=== PATIENT | male | born 1940 | race Caucasian/White ===

== ENCOUNTER → 2022-11-01 11:46 | Outpatient (CLI) | payer MEDICARE, OTHER, SELFPAY ==
--- NOTE | 2022-11-01 11:48 | CA_ITS ---
APPROVED REPORT EXAM: Comprehensive 2D, Doppler, and color-flow Echocardiogram Supervisor Loading: ROYCE Brown, RVS Ht: 6 ft 1 in Wt: 172lbs BSA: 2.02 BP: 166/101 mmHg Rhythm: Irregular Indications: Abn EKG, HTN, HLD, Renal artery stenosis post stent Echo Enhancing Agent Comments: Extremely low and limited acoustic windows with lung impedence. 2D Dimensions LVDd 5.10 cm M: 4.2 - 5.9 LVEF (Visual) 50.40 % LVDs 43.87 cm M: 2.5 - 4.0 LA Volume 51.70 mL Aortic Root 3.18 cm M: 3.1 - 3.7 LA Volume Index 25.59 mL/m2 (M/F) 16-34 Left Atrium 3.43 cm M: 3.0 - 4.0 LVOT 1.99 cm (M/F) 1.5-2.5 M-Mode Dimensions RVDd 2.89 cm (0.9-2.6) LVDd 5.30 cm (3.5-5.7) LVDs 3.73 cm (3.5-5.7) IVSd 1.13 cm (0.6-1.1) PWd 0.93 cm (0.6-1.1) EF (Teich) 56.20% EPSs 1.04 cm FS 29.60% EDV (Teich) 135.30 mL TAPSE 2.31 (<1.7) ESV (Teich) 59.30 mL LV Diastology E Decel Time 325.00 (160-240 msec) E/A Ratio 0.66 MED E' 7.10 (< 7 cm/sec) MED A' 9.40 cm/s E'/MED E' Ratio 5.59 (>14) LAT E' 9.80 (<10 cm/sec) LAT A' 9.60 cm/s E/LAT E' Ratio 4.05 (>14) Aortic Valve LVOT Max 70.00 (70-110 cm/s) LVOT VTI 16.45 cm AoV Peak Maximo. 120.00 (50-130 cm/s) AI PHT 687.00 ms AO Peak GR. 5.70 mmHg AO Mean GR. 2.90 (<5 mmHg) AO VTI 27.48 (18-25 cm) MALACHI (VTI) 1.86 (2.5-4.5 cm2) Mitral Valve MV A Velocity 60.00 (40-130 cm/s) E/A Ratio 0.66 MV Decel. Time 325.00 (160-240 ms) MV PHT 80.00 ms Pulmonary Valve PV Peak Velocity 72.00 (50-150 cm/s) Tricuspid Valve TR P. Velocity 297.00 cm/s Left Ventricle Technically difficult study because of the patient factors and poor acoustic windows. Left atrium is mildly enlarged, left ventricle is normal size, mild concentric left ventricular hypertrophy, estimated ejection fraction is 50% with no obvious regional wall motion abnormality, grade 1 diastolic dysfunction seen without tissue Doppler evidence of raise left atrial pressure. Right Ventricle Right atrium and right ventricle are mildly enlarged with normal contractility. Aortic Valve Aortic valve is minimally thickened and calcified without aortic stenosis, there is mild aortic insufficiency. Mitral Valve Mitral valve leaflets are minimally thickened, there is mild mitral regurgitation. Tricuspid Valve Tricuspid valve is grossly normal, there is mild tricuspid regurgitation, tricuspid regurgitation jet velocity is inadequate for calculation of the right ventricular systolic pressure. Pulmonic Valve Pulmonic valve is poorly visualized. Great Vessels Aortic root is normal size. Inferior vena cava is poorly visualized. Pericardium No significant pericardial effusion noted. Conclusion 1. Mild biatrial enlargement, normal left ventricular size, mild concentric left ventricular hypertrophy, estimated ejection fraction 50% with no regional wall motion abnormality, grade 1 diastolic dysfunction seen without tissue Doppler evidence of restricted atrial pressure. 2. Mild aortic, mitral and tricuspid regurgitation. 3. No significant pericardial effusion noted. 4. Inferior vena cava is poorly visualized. Electronically signed by : Ismael Veronica MD 11/02/2022 06:16:41
== END ==
PROVIDERS: PCP Family Medicine; Visit Provider Nurse Practitioner Family
DX: I15.0 Renovascular hypertension (principal); I70.1 Atherosclerosis of renal artery; R94.31 Abnormal electrocardiogram [ECG] [EKG]
CPT/HCPCS: 93306

== ENCOUNTER → 2022-11-15 06:31 | Outpatient (CLI) | payer MEDICARE, SELFPAY ==
--- NOTE | 2022-11-15 06:32 | US_ITS ---
FINAL REPORT TECHNIQUE: Ultrasound images of the kidneys were obtained. CLINICAL HISTORY: R94.31 - Abnormal electrocardiogram ECG EKG FINDINGS: US RETROPERITONEAL The right kidney measures 10.2 cm in length. There is a small exophytic cortical cyst measuring 1.3 cm. There is no hydronephrosis. The left kidney measures 11.4 cm in length. There are several small cyst in the left kidney. There is mild left hydronephrosis. IMPRESSION: Bilateral renal cysts. Mild left hydronephrosis.. Reviewed, Interpreted and Dictated by Janet Wang MD Transcribed by Aretha Diaz Authenticated and [facility]
--- NOTE | 2022-11-15 06:32 | CA_ITS ---
APPROVED REPORT Exam: Pharmacologic Technologist: Prudence Negro Ht: 6 ft 1 in Wt: 172 lbs BSA: 2.02 m2 HR: 54 bpm BP: 150/73 mmHg Indications: Abnormal ekg, Hypertension, AAA Medical History Medications: Omeprazole,,,,, Levothyroxine,,,,, Hydralazine,,,,, Metoprolol,,,,, Vitamin B12,,,,, Allopurinol,,,,, FOLIC ACID,,,,, CloPIdogrel,,,,, Stress Test Details Test: LEXISCAN HR Resting HR: 64 bpm Max Heart Rate (APMHR): 138.038152 bpm Max HR Achieved: 69 bpm Target HR (85% APMHR): 117.093928 bpm % of APMHR: 50.00 Recovery HR: 61 bpm BP Resting BP: 150.0/73.0 mmHg Max BP: 150.0/73.0 mmHg Recovery BP: 131.0/67.0 mmHg ECG Resting ECG: Sinus rhythm Clinical Exercise duration: 04:00 min Highest Stage Achieved: Exercise capacity: 1.0 METs Stress ECG Conclusion Symptoms: No chest pain. No shortness of breath Arrhythmias/Ectopy: PACs noted. PVC noted. ST-T Changes: < 1.[address] segment depression. Test Summary REST . . . . . . . Resting REST 17:22 . . 64 . 150/ 73 . . Stage 1 . . . . . . . Myoview Injected Stage 1 01:00 . . 65 . . . . Stage 2 01:00 . . 68 . 140/ 69 . . Stage 3 01:00 . . 68 . 136/ 71 . . Stage 4 01:00 . . 66 . 138/ 74 . Stop exercise at 04:00 RECOVERY 01:00 . . 64 . 131/ 71 . . RECOVERY 02:00 . . 60 . 131/ 71 . . RECOVERY 02:19 . . 63 . 131/ 71 . . Electronically signed by : Ismael Veronica MD 11/15/2022 12:31:16
--- NOTE | 2022-11-15 06:32 | US_ITS ---
FINAL REPORT CLINICAL HISTORY: aaa FINDINGS: Limited sonographic images were obtained of the abdomen to evaluate the abdominal aorta and iliac arteries. The abdominal aorta measures up to 4.7 cm in maximum diameter. There is mild atherosclerotic plaque throughout the aorta. The iliac arteries are within normal limits. IMPRESSION: Abdominal aortic aneurysm with a maximum diameter 4.7 cm. Reviewed, Interpreted and Dictated by Janet Wang MD Transcribed by Aretha Diaz Authenticated and [facility]
--- NOTE | 2022-11-15 06:32 | CA_ITS ---
FINAL REPORT TECHNIQUE: Grayscale, color Doppler and duplex Doppler ultrasound of the kidneys, aorta and renal arteries was performed. Multiple velocities were measured. CLINICAL HISTORY: htn, Known AAA, Hx- Left renal artery stent 4 years ago. COMPARISON: none FINDINGS: Aorta velocity: 72 cm/sec. Note is made of abdominal aortic aneurysm measuring 4.5 cm. Right kidney: 10.1 cm. No evidence of hydronephrosis. Cortical cyst is noted. Right intrarenal RI: 0.5-0.65 Right renal artery velocity: 176 cm/sec. Right RAR (Renal artery-Aortic Ratio): 2.44 Left Kidney: 11.6 cm. No evidence of hydronephrosis. There is a small left renal cysts seen. Left intrarenal RI: 0.63-0.73 Left renal artery velocity: 205 cm/sec. Left RAR (Renal Artery-Aortic Ratio): 2.8 IMPRESSION: Less than 60% stenosis on the right. Greater than 60% stenosis on the left based on peak systolic velocity. RAR however is normal. CT angiogram or postcontrast MR angiogram would be more sensitive for evaluation of possible renal artery stenosis. Reviewed, Interpreted and Dictated by Janet Wang MD Transcribed by Janie Poole Authenticated and . [facility]
--- NOTE | 2022-11-15 06:32 | NM_ITS ---
APPROVED REPORT Exam: Nuclear Stress Test Indication: Abnormal EKG, HTN Patient Location: Outpatient Stress Tech: Prudence Negro MS Tech:Kendal Gonzales, ARRT, RT (R)(N) Ht: 6 ft 0 in Wt: 175 lbs HR: 64 bpm BP: 150/73 mmHg BSA: 2.01 m2 TID: 1.27 History: Abnormal EKG, HTN Procedure: Patient received 0.4 mg of intravenous Lexiscan, resting heart rate 64 bpm, resting blood pressure 150/73 mmHg, with Lexiscan maximum heart rate achieved was 69 bpm which is Less than 85 % of the maximum predicted heart rate and blood pressure was 150/73 mmHg. With Lexiscan, patient denied any complaint of chest pain. Electrocardiogram Resting electrocardiogram shows sinus rhythm, with Lexiscan there is less than 1.[address] segment depression noted from the baseline EKG. The EKG portion of the Lexiscan is nondiagnostic. Cardiac Stress and Resting SPECT Images: Cardiac Stress and Resting SPECT images were obtained using technetium 99m Myoview 29.6 mCi stress and 10.17 mCi at rest. Gated SPECT analysis of segmental wall motion and calculation of the ejection fraction also done. Prone images were also obtained. Cardiac stress and rest SPECT images showed reversible ischemia involving the inferior wall, there is transient ischemic dilatation of the left ventricle seen, computer derived ejection fraction is 51% with no regional wall motion abnormality, right ventricle is normal size and contractility.. Conclusion: 1. The EKG portion of the Lexiscan is nondiagnostic. 2. Scintigraphic evidence of reversible ischemia involving the inferior wall, computer derived ejection fraction is 51% with no regional wall motion abnormality, right ventricle is normal size and contractility, there is transient ischemic dilatation of the left ventricle, raising the concerns for presence of multivessel coronary artery disease. 3. Abnormal Lexiscan Myoview study. Electronically signed by : Ismael Veronica MD 11/15/2022 12:45:54
--- NOTE | 2022-11-15 08:22 | HMH.ITSHM ---
Current Home Medications as stated by this patient Jsapal Veronica or chain sales representative. []OMEPRAZOLE METOPROLOL LEVOTHYROXINE HYDRALAZINE FOLIC ACID CLOPIDOGREL AMLODIPINE ALLOPURINOIL B12
== END ==
PROVIDERS: PCP Family Medicine; Visit Provider Nurse Practitioner Family
DX: I70.1 Atherosclerosis of renal artery (principal); R94.31 Abnormal electrocardiogram [ECG] [EKG]; I15.0 Renovascular hypertension; I71.40 Abdominal aortic aneurysm, without rupture, unspecified
CPT/HCPCS: 76770; 78452; 93017; 93976; A9502; J2785

== ENCOUNTER 2022-11-23 12:59 | Observation (INO) | payer MEDICARE, SELFPAY ==
[2022-11-23] VITALS (21 sets, daily range): BP systolic 117–169; BP diastolic 68–98; PULSE 46–64; RESP 14–18; TEMP 36.4–36.6; O2SAT 93–100; BMI 22.1; BMI 21.7
--- NOTE | 2022-11-23 07:08 | IR_ITS ---
APPROVED REPORT Patient Location: Outpatient PROCEDURES Right femoral arterial access Right retrograde femoral angiogram Catheter placement in the right common iliac artery Right common iliac artery retrograde angiogram Selective coronary angiogram Drug-eluting stent deployment in the dominant circumflex artery Drug-eluting stent deployment to the ostial proximal mid LAD Drug-eluting stent deployment to the ostial proximal left main artery Bilateral selective renal angiogram INDICATION Coronary artery disease, Angina pectoris, Abnormal Myoview, Renal artery stenosis, Renovascular hypertension, Chronic renal failure creatinine 1.6, Right common iliac artery aneurysm, Peripheral artery disease Informed consent was obtained prior to the procedure. COMPLICATIONS None Estimated Blood Loss: Less than 10 mls TECHNIQUE One percent lidocaine was used to anesthetize the right groin. The right femoral artery was accessed via the Seldinger technique. A 4-Maltese sheath was placed in the right femoral artery. There was difficulty passing the wire through the right iliofemoral artery therefore retrograde femoral angiography was performed. A JL 4 catheter was advanced to the right common iliac artery where retrograde angiography was performed. Following this the apparatus was removed and a JR4 catheter was placed into the right common iliac artery and then used to steer past the aneurysm. A JL 4 JR 4 catheter were used to perform selective coronary angiography as well as bilateral selective renal angiography. At the end the diagnostic angiogram therapeutic heparin was administered giving a therapeutic ACT and the 4 Maltese sheath was exchanged for a 6 Maltese sheath. Initially an EBU 3.75 guide catheter was placed in the left main artery followed by Choice PT extra-support wire being placed down the dominant circumflex artery. A 4 mm x 38 mm resolute Timbo stent was deployed in the mid left main artery extending into the proximal circumflex artery and deployed at 20 dave. Following this an additional Choice PT extra-support wire was placed into the proximal LAD used to traverse the stenosis then placed distally. A 3 mm balloon was used to open the struts going into the LAD. A 3.5 x 38 mm resolute [place] stent was deployed at 20 dave in the ostial segment of the left main artery extending into the proximal segment. An additional 3.5 x 26 mm resolute [place] stent was then deployed at the mid LAD at 18 dave and the balloon was brought back and deployed at 24 dave to post dilate. Following this a 4.5 x 12 mm resolute Timbo stent was placed in the ostial segment of the left main artery in a noncontiguous manner and deployed at 20 dave. The balloon was advanced and deployed at 20 dave into the circumflex artery in the distal left main artery. After achieving excellent angiograph results the apparatus was removed the groin is reprepped closure change sheath was removed and hemostasis was achieved using Perclose device patient was transferred to the postop holding in stable condition ANGIOGRAPHIC RESULTS The left main artery Has a distal hazy 50% stenosis The left anterior descending artery Is an ostial proximal 70 to 80% diffuse stenosis followed by additional 40 to 50% mid vessel stenoses. The first diagonal artery is a large vessel and has an ostial complex 80% stenosis The circumflex artery Is a dominant vessel and has a proximal concentric 70 to 80% stenosis the first obtuse marginal artery is small and has an ostial 80% stenosis The right coronary artery Is a nondominant vessel with proximal and mid vessel 20 to 30% stenosis The JOHNSON ventriculogram reveals Not performed The left ventricular end-diastolic pressure Not measur
[2022-11-23 09:08] LABS: Basophils # 0.1 K/mm3 (0-0.2); Basophils % 0.9 % (0.1-2.0); Eosinophils # 0.2 K/mm3 (0.0-0.4); Eosinophils % 3.1 % (0.1-12.0); Hematocrit 45.3 % (42.0-52.0); Hemoglobin 14.8 g/dL (14.1-18.0); Lymphocytes % 16.3 % (10-50); Mean Corpuscular HGB Conc 32.6 g/dL (31.8-35.4); Mean Corpuscular Hemoglobin 31.2 pg (27.0-31.2); Mean Corpuscular Volume 95.6 fl (80-94); Mean Platelet Volume 8.6 fl (7.4-10.4); Monocytes # 0.4 K/mm3 (0.1-1.0); Monocytes % 7.3 % (1.7-9.3); Neutrophils # 4.3 K/mm3 (1.8-7.8); Neutrophils % 72.3 % (37.0-80.0); Platelet Count 299 K/mm3 (142-424); Red Blood Count 4.74 M/mm3 (4.60-6.20); Red Cell Distribution Width 13.8 % (11.5-17.5); White Blood Count 5.9 K/mm3 (4.8-10.8)
[2022-11-23 09:11] LABS: Chloride 103 mmol/L (98-107)
[2022-11-23 09:12] LABS: Potassium 4.3 mmoL/L (3.5-5.1); Sodium 140 mmol/L (136-145)
[2022-11-23 09:14] LABS: Blood Urea Nitrogen 20 mg/dl (9-20); Creatinine Clearance Estimated 38 mL/min (50-200); Estimated Glomerular Filt Rate 42 ml/min (>60); GFR (African American) 50 ML/MIN (>60)
[2022-11-23 09:15] LABS: Anion Gap 10.3 mEq/L (5-15); Calcium 9.6 mg/dl (8.4-10.2); Carbon Dioxide 31 mmol/L (22.0-30.0); Glucose 116 mg/dl (74-100)
[2022-11-23 13:06] LABS: CATHL Activated Clotting Time 233 SEC (74-125)
[2022-11-23 13:07] LABS: CATHL Activated Clotting Time > 400 SEC (74-125)
--- NOTE | 2022-11-23 13:17 | EXP.CARD.CON ---
History of Present Illness History of Present Illness Consult date: 11/23/22 Requesting physician: Juma Sanders Chief complaint: Abnormal stress, post lhc, destinee History of present illness: 82 year old white male with past medical hx of AAA, ALEKSANDAR with hx of left renal artery stenting 4-5 years ago, HTN, and CAD presented to hospital today for LHC related to abnormal stress test. Patient underwent LHC and received stent to Left main, LAD, and circ. Patient also recently had a renal artery ultrasound which showed greater than 60 percent stenosis on left side. Due to elevated creatinine today, patient could not have renal angiogram performed during LHC. Patient will be admitted for 48 hours to monitor kidney function with plans to return to labor relations representative or Tuesday for renal angiogram. Creatinine noted to be 1.60 today. [facility] Disclaimer: The information contained in this section may have been updated after the patient was seen, as this information can be updated by other users. Medical History (Updated 11/23/22 @ 13:33 by Phyllis Izquierdo APRN) Abdominal aortic aneurysm (AAA) Abnormal electrocardiogram [ECG] [EKG] Abnormal renal ultrasound Abnormal result of cardiovascular function study Atypical angina Dizziness Headache Hyperlipidemia Hypertension Renal artery stenosis Surgical History History of stent insertion of renal artery Family History Father Coronary artery disease Heart attack Mother Cancer Brother Alcoholism Social History Smoking Status: Never smoker alcohol intake: never current occupational status: retired Travel in the last 8 weeks: None housing: house current occupational exposures/hazards: No caffeine: No Review of Systems Review of Systems Review of systems:: pertinent systems reviewed and negative unless documented below *Cardiovascular Cardiovascular: Reports chest pain and Reports dyspnea *Respiratory Respiratory: Reports dyspnea Exam Data for Last 24 hours Vital signs and Labs for Last 24 Hours: Pulse Resp BP Pulse Ox 50 L 18 162/82 H 96 11/23/22 12:35 11/23/22 12:35 11/23/22 12:35 11/23/22 12:35 Laboratory Results - last 24 hr 11/23/22 09:00: WBC 5.9, RBC 4.74, Hgb 14.8, Hct 45.3, MCV 95.6 H, MCH 31.2, MCHC 32.6, RDW 13.8, Plt Count 299, MPV 8.6, Neut % (Auto) 72.3, Lymph % (Auto) 16.3, Weld % (Auto) 7.3, Eos % (Auto) 3.1, Baso % (Auto) 0.9, Neut # (Auto) 4.3, Lymph # (Auto) 1.0, Weld # (Auto) 0.4, Eos # (Auto) 0.2, Baso # (Auto) 0.1 11/23/22 09:00: Sodium 140, Potassium 4.3, Chloride 103, Carbon Dioxide 31 H, Anion Gap 10.3, BUN 20, Creatinine 1.60 H, Estimated Creat Clear 38, Estimated GFR 42 L, Est GFR ( Amer) 50 L, Glucose 116 H, Calcium 9.6 11/23/22 12:41: Activated Clotting Time > 400 H* 11/23/22 13:05: Activated Clotting Time 233 H* D I & O for Last 24 hours: Intake & Output 11/20/22 11/21/22 11/22/22 11/23/22 23:59 23:59 23:59 23:59 Weight 168 lb Constitutional Constitutional: no acute distress *Routine Respiratory Exam Respiratory: Present CTA bilaterally and symmetric chest movement *Routine Cardiovascular Exam Cardiovascular: Present RRR, Normal S1 and Normal S2 *Routine Abdominal Exam Abdominal: Present soft and normoactive bowel sounds; Absent tenderness *Routine Extremities Exam Extremities: Present full ROM and normal capillary refill; Absent edema *Routine Skin Exam Skin: Present intact, dry and warm Detailed Neck Exam: Thyroids Thyroid: Absent bruit Meds Home Medications and Allergies Home Medications Medication Instructions Recorded Confirmed Type clopidogrel 75 mg tablet 75 mg PO DAILY PLATELET INHIBITOR 07/30/19 11/23/22 History cyanocobalamin 2 mg-levomefolate 1 each PO DAILY Supplement 07/30/19 11/23/22 History jean-paul 1.13 mg-pyridoxine 25 mg tablet
--- NOTE | 2022-11-23 14:16 | EXP.HP ---
History of Present Illness *Admission Date: 11/23/22 *Reason for visit:: s/p cath, concern for ADALI, HTN *History of present illness: Mr. Veronica is a pleasant 82-year-old gentleman with past medical hx of AAA, ALEKSANDAR (hx of left renal artery stenting 4-5 yrs ago), HTN, and CAD who presented to [facility] for left heart cath today related to abnormal stress test. He underwent left heart cath receiving stenting to his left main artery, LAD, and dominant circumflex. Was noted to have renal artery stenosis on the left side of greater than 60% on ultrasound. Labs obtained today show creatinine of 1.6. Unclear if patient's baseline. Also noted to have elevated blood pressures. Cardiology consulted medicine for admission for observation and serial monitoring of renal function. Pending response to fluids and improvement or stability in creatinine, plan for repeat cath to address renal artery stenosis in the coming days. On arrival to the floor, patient has no complaints. Denies any chest pain, nausea, vomiting. Does have some mild shortness of breath that he has had for some time but attributed to deconditioning. Denies juan manuel angina. No diarrhea or constipation. No syncope or dizziness. Overall feels well. Is very inquisitive on interview today. Denies history of smoking. No history of diabetes. Denies history of elevated cholesterol. Does report history of hypertension has been difficult to control previously. [facility] Disclaimer: The information contained in this section may have been updated after the patient was seen, as this information can be updated by other users. Medical History Abdominal aortic aneurysm (AAA) Abnormal electrocardiogram [ECG] [EKG] Abnormal renal ultrasound Abnormal result of cardiovascular function study Atypical angina Dizziness Headache Hyperlipidemia Hypertension Renal artery stenosis Surgical History History of stent insertion of renal artery Family History Coronary artery disease Father Alcoholism Brother Heart attack Father Cancer Mother Social History Smoking Status: Never smoker alcohol intake: never current occupational status: retired Travel in the last 8 weeks: None housing: house current occupational exposures/hazards: No caffeine: No Review of Systems Review of Systems Review of systems (narrative): 14 point review of systems performed, pertinent positives and negatives as per [facility] Meds Home Medications and Allergies Home Medications Medication Instructions Recorded Confirmed Type clopidogrel 75 mg tablet 75 mg PO DAILY PLATELET INHIBITOR 07/30/19 11/23/22 History cyanocobalamin 2 mg-levomefolate 1 each PO DAILY Supplement 07/30/19 11/23/22 History jean-paul 1.13 mg-pyridoxine 25 mg tablet folic acid 800 mcg tablet 800 mcg PO DAILY Supplement 11/01/22 11/23/22 History levothyroxine 88 mcg tablet 88 mcg PO DAILY thyroid 11/01/22 11/23/22 History metoprolol succinate 50 mg 50 mg PO DAILY Hypertension 11/01/22 11/23/22 History tablet,extended release 24 hr omeprazole 20 mg capsule,delayed 20 mg PO DAILY GERD 11/01/22 11/23/22 History release allopurinol 100 mg tablet 100 mg PO DAILY GOUT 11/23/22 11/23/22 History amlodipine 10 mg tablet (Norvasc) 10 mg PO DAILY Hypertension 11/23/22 11/23/22 History New Prescriptions to Start Prescriptions: Allergies Allergy/AdvReac Type Severity Reaction Status Date / Time No Known Allergies Allergy Verified 11/23/22 13:21 Exam Data for Last 24 hours Vital signs and Labs for Last 24 Hours: Pulse Resp BP Pulse Ox 64 18 151/89 H 94 L 11/23/22 13:20 11/23/22 13:20 11/23/22 13:20 11/23/22 13:20 Laboratory Results - last 24 hr 11/23/22 09:00: WBC 5.9, RBC 4.74,
--- NOTE | 2022-11-23 14:49 | HMH.PHAINT1 ---
Pharmacy Intervention Comments: MEDICATION RECONCILIATION COMPLETED ON PATIENT USING EXTERNAL FILL HISTORY FROM PHARMACY AND PATIENT INTERVIEW. -CORRINE MAJOR, FANNIED
[2022-11-23 19:29] LABS: Anion Gap 5.3 mEq/L (5-15); Blood Urea Nitrogen 19 mg/dl (9-20); Calcium 8.8 mg/dl (8.4-10.2); Carbon Dioxide 30 mmol/L (22.0-30.0); Chloride 106 mmol/L (98-107); Creatinine Clearance Estimated 46 mL/min (50-200); Estimated Glomerular Filt Rate 53 ml/min (>60); GFR (African American) 64 ML/MIN (>60); Glucose 117 mg/dl (74-100); Potassium 4.3 mmoL/L (3.5-5.1); Sodium 137 mmol/L (136-145)
[2022-11-24] VITALS (7 sets, daily range): BP systolic 123–135; BP diastolic 65–74; PULSE 50–70; RESP 16–20; TEMP 36.6–37; O2SAT 94–97; BMI 21.7
--- NOTE | 2022-11-24 04:09 | PC.NURSE ---
patient has rested well through the night. stable on room air. iv fluids. drsg on femoral access c/d/i.
[2022-11-24 06:46] LABS: Basophils % 0.6 % (0.1-2.0); Eosinophils # 0.2 K/mm3 (0.0-0.4); Eosinophils % 2.3 % (0.1-12.0); Hematocrit 40.2 % (42.0-52.0); Lymphocytes # 0.9 K/mm3 (0.7-4.5); Lymphocytes % 13.8 % (10-50); Mean Corpuscular HGB Conc 32.3 g/dL (31.8-35.4); Mean Corpuscular Hemoglobin 31.1 pg (27.0-31.2); Mean Corpuscular Volume 96.4 fl (80-94); Mean Platelet Volume 8.5 fl (7.4-10.4); Monocytes # 0.5 K/mm3 (0.1-1.0); Monocytes % 7.8 % (1.7-9.3); Neutrophils % 75.5 % (37.0-80.0); Platelet Count 248 K/mm3 (142-424); Red Blood Count 4.16 M/mm3 (4.60-6.20); Red Cell Distribution Width 13.9 % (11.5-17.5); White Blood Count 6.6 K/mm3 (4.8-10.8)
[2022-11-24 06:55] LABS: Chloride 107 mmol/L (98-107); Potassium 4.3 mmoL/L (3.5-5.1)
[2022-11-24 07:02] LABS: Chol/HDL Ratio 5.6 (1-3.5); Cholesterol 161 mg/dl (140-200); HDL Cholesterol 29 mg/dl (40-60); Triglycerides 117 mg/dl (30-150); VLDL Cholesterol 23 mg/dL (0-40)
[2022-11-24 07:07] LABS: Sodium 136 mmol/L (136-145)
[2022-11-24 07:13] LABS: Direct LDL Cholesterol 112.65 mg/dL (100-129)
[2022-11-24 07:15] LABS: Anion Gap 5.3 mEq/L (5-15); Blood Urea Nitrogen 19 mg/dl (9-20); Calcium 8.6 mg/dl (8.4-10.2); Carbon Dioxide 28 mmol/L (22.0-30.0); Creatinine Clearance Estimated 46 mL/min (50-200); Estimated Glomerular Filt Rate 53 ml/min (>60); GFR (African American) 64 ML/MIN (>60); Glucose 93 mg/dl (74-100)
[2022-11-24 07:32] LABS: Thyroid Stimulating Hormone 0.54 uIU/mL (0.465-4.68)
[2022-11-24 08:03] LABS: Coronavirus 19, PCR Not Detected (NotDetected); Influenza A, PCR Not Detected (NotDetected); Influenza B, PCR Not Detected (NotDetected)
--- NOTE | 2022-11-24 08:40 | EXP.CARD.PN ---
Subjective Subjective Date: 11/24/22 Time: 08:00 Principal diagnosis: post procedure, adali Interval history: Doing well this am, denies any complaints. am labs reviewed, creatinine improved to 1.3 Exam Data for Last 24 hours Vital signs and Labs for Last 24 Hours: Temp Pulse Resp BP Pulse Ox 98.1 F 67 18 135/71 95 11/24/22 08:00 11/24/22 08:00 11/24/22 08:00 11/24/22 08:00 11/24/22 08:00 Laboratory Results - last 24 hr 11/23/22 09:00: WBC 5.9, RBC 4.74, Hgb 14.8, Hct 45.3, MCV 95.6 H, MCH 31.2, MCHC 32.6, RDW 13.8, Plt Count 299, MPV 8.6, Neut % (Auto) 72.3, Lymph % (Auto) 16.3, [place] % (Auto) 7.3, Eos % (Auto) 3.1, Baso % (Auto) 0.9, Neut # (Auto) 4.3, Lymph # (Auto) 1.0, [place] # (Auto) 0.4, Eos # (Auto) 0.2, Baso # (Auto) 0.1 11/23/22 09:00: Sodium 140, Potassium 4.3, Chloride 103, Carbon Dioxide 31 H, Anion Gap 10.3, BUN 20, Creatinine 1.60 H, Estimated Creat Clear 38, Estimated GFR 42 L, Est GFR ( Amer) 50 L, Glucose 116 H, Calcium 9.6 11/23/22 12:41: Activated Clotting Time > 400 H* 11/23/22 13:05: Activated Clotting Time 233 H* D 11/23/22 18:54: Sodium 137, Potassium 4.3, Chloride 106, Carbon Dioxide 30, Anion Gap 5.3, BUN 19, Creatinine 1.30 H, Estimated Creat Clear 46, Estimated GFR 53 L, Est GFR ( Amer) 64 D, Glucose 117 H, Calcium 8.8 11/24/22 06:10: WBC 6.6, RBC 4.16 L, Hgb 13.0 L D, Hct 40.2 L, MCV 96.4 H, MCH 31.1, MCHC 32.3, RDW 13.9, Plt Count 248, MPV 8.5, Neut % (Auto) 75.5, Lymph % (Auto) 13.8, [place] % (Auto) 7.8, Eos % (Auto) 2.3, Baso % (Auto) 0.6, Neut # (Auto) 5.0, Lymph # (Auto) 0.9, [place] # (Auto) 0.5, Eos # (Auto) 0.2, Baso # (Auto) 0.0 11/24/22 06:10: Sodium 136, Potassium 4.3, Chloride 107, Carbon Dioxide 28, Anion Gap 5.3, BUN 19, Creatinine 1.30 H, Estimated Creat Clear 46, Estimated GFR 53 L, Est GFR ( Amer) 64, Glucose 93 D, Calcium 8.6 11/24/22 06:10: Triglycerides 117, Cholesterol 161, LDL Cholesterol Direct 112.65, VLDL Cholesterol 23, HDL Cholesterol 29 L, Cholesterol/HDL Ratio 5.6 H, TSH 0.54 I & O for Last 24 hours: Intake & Output 11/21/22 11/22/22 11/23/22 11/24/22 23:59 23:59 23:59 23:59 Intake Total 240 / 490 250 / 250 Output Total 800 / 1200 900 / 900 Balance -560 / -710 -650 / -650 Weight 164 lb 4 oz 164 lb 3.91 oz Constitutional Constitutional: no acute distress *Routine Respiratory Exam Respiratory: Present CTA bilaterally and symmetric chest movement *Routine Cardiovascular Exam Cardiovascular: Present RRR, Normal S1 and Normal S2 *Routine Abdominal Exam Abdominal: Present soft and normoactive bowel sounds; Absent tenderness *Routine Extremities Exam Extremities: Present full ROM and normal capillary refill; Absent edema *Routine Skin Exam Skin: Present intact, dry and warm Detailed Neck Exam: Thyroids Thyroid: Absent bruit Progress Note: A&P Assessment and plan (1) ADALI (acute kidney injury): Status: Acute (2) Coronary artery disease: Status: Acute (3) Abnormal renal ultrasound: Status: Acute (4) Abdominal aortic aneurysm (AAA): Status: Chronic (5) Renal artery stenosis: Status: Chronic (6) Hyperlipidemia: Status: Chronic (7) Hypertension: Status: Chronic Assessment and Plan Assessment and Plan for All Diagnoses:: CAD -[facility] 11/23/22: Stenting to left main, lad, and circ -continue DAPT, BB, and statin ALEKSANDAR -Previous stenting to left renal artery 4-5 years ago -Renal artery ultrasound- >60 stenosis noted to left renal artery -Plan to bring patient back to [facility] for renal angiogram or Tuesday after observation of renal function post today's cath. 11/24/2022: Creatinine improved today, patient will be taken back to cathlab today. AAA -4.7 cm noted. This was discussed in office with Dr. Diaz previously, will continue to monitor until reaches 5cm. -BP control ADALI -creatinine 1.6, baseline unknown -trend 11/24/2022: Creatinine improved to 1.3 this a.m. HTN -Cont
--- NOTE | 2022-11-24 09:23 | IR_ITS ---
APPROVED REPORT Patient Location: Inpatient PROCEDURES Left renal artery selective angiogram Bare-metal stent deployment to the left renal artery INDICATION Renal artery stenosis, Chronic renal failure, Renovascular hypertension Informed consent was obtained prior to the procedure. COMPLICATIONS None Estimated Blood Loss: Less than 10 mls TECHNIQUE 1% lidocaine used to anesthetize the right femoral groin. The right femoral artery was accessed via the Seldinger technique. A 7 Turkmen sheath was placed in the right femoral artery. A short GEE guide catheter was used to negotiate through the aneurysmal right common iliac artery. Therapeutic heparin was administered giving a therapeutic ACT and the short GEE catheter was used to intubate the left renal artery. A Choice PT extra-support wire was placed down the left renal artery and a 6.5 x 18 mm Herculink stent was deployed at 20 dave reducing the stenosis. The balloon was brought back and deployed at 22 dave in the ostium and the proximal segment further post dilating. Excellent angiographic results were obtained. At the end of the procedure the apparatus was removed the groin was reprepped gloves were changed sheath was removed and hemostasis was achieved using Perclose device patient was transferred to the postop holding area in stable condition. 12 cc of contrast was used during the entire procedure ANGIOGRAPHIC RESULTS Left renal artery has an ostial 90% stenosis. Following the stent the left renal artery is widely patent with minimal 10% concentric in-stent restenosis IMPRESSION Successful percutaneous stenting of the left renal artery severe to critical disease reduced to 10% with 1 bare-metal balloon mounted stent PLAN 1. Continue medical management Electronically signed by : Jerel Diaz MD 11/24/2022 15:22:31
[2022-11-24 14:30] LABS: CATHL Activated Clotting Time 300 SEC (74-125)
--- NOTE | 2022-11-24 15:07 | EXP.DC.SUM ---
General Admission date:: 11/23/22 Discharge date: 11/24/22 HPI HPI HPI: Mr. Veronica is a pleasant 82-year-old gentleman with past medical hx of AAA, ALEKSANDAR (hx of left renal artery stenting 4-5 yrs ago), HTN, and CAD who presented to [facility] for left heart cath today related to abnormal stress test. He underwent left heart cath receiving stenting to his left main artery, LAD, and dominant circumflex. Was noted to have renal artery stenosis on the left side of greater than 60% on ultrasound. Labs obtained today show creatinine of 1.6. Unclear if patient's baseline. Also noted to have elevated blood pressures. Cardiology consulted medicine for admission for observation and serial monitoring of renal function. Pending response to fluids and improvement or stability in creatinine, plan for repeat cath to address renal artery stenosis in the coming days. On arrival to the floor, patient has no complaints. Denies any chest pain, nausea, vomiting. Does have some mild shortness of breath that he has had for some time but attributed to deconditioning. Denies juan manuel angina. No diarrhea or constipation. No syncope or dizziness. Overall feels well. Is very inquisitive on interview today. Denies history of smoking. No history of diabetes. Denies history of elevated cholesterol. Does report history of hypertension has been difficult to control previously. Hospital Course Hospital Course Hospital Course: Mr. Veronica is a pleasant 82-year-old gentleman status post left heart cath today.? 3 stents deployed.? Good improvement in flow in coronaries.? Given concern for ADALI and hypertension, and need for monitoring of kidney function, cardiology consulted medicine for admission.? Admitted from patient overnight and fluid rehydration with serial monitoring of kidney function for ADALI. Taken to [facility] in the morning for stenting of right renal artery stenosis. Tolerated procedures well. Kidney function improved. Problems addressed as follows: CAD -Left heart cath performed 11/23/22 with stenting to left main, LAD, circumflex. Tolerated procedure well. Continue dual antiplatelet therapy with aspirin 81 mg daily and Plavix 75 mg daily. Initiated on Lipitor 40 mg nightly. Lipid panel obtained showing LDL of 112. Hypertension Renal artery stenosis -Continue home metoprolol 50 mg daily and amlodipine 10 mg daily during admission. Blood pressure well controlled. Taken for stenting of right renal artery stenosis on 11/24/2022. Tolerated procedure well. TSH checked for other causes of hypertension, well controlled at 0.54 on home levothyroxine 88 mcg daily. Close follow-up with cardiology in the coming weeks to monitor blood pressure and for further potential medication adjustments. AAA: 4.7 cm noted. This was discussed in office with Dr. Diaz previously, will continue to monitor until reaches 5cm. Control blood pressure to medically manage ADALI: Present on admission with creatinine of 1.6. Improved to 1.3 by following morning with gentle fluid rehydration. Stable. Would benefit from repeat labs at follow-up to make sure kidney function remained stable. Appropriate for discharge home. Close follow-up with cardiology. Exam Data for Last 24 hours Vital signs and Labs for Last 24 Hours: Temp Pulse Resp BP Pulse Ox 98.1 F 55 L 20 124/70 94 L 11/24/22 08:00 11/24/22 13:57 11/24/22 13:57 11/24/22 13:57 11/24/22 13:57 Laboratory Results - last 24 hr 11/23/22 18:54: Sodium 137, Potassium 4.3, Chloride 106, Carbon Dioxide 30, Anion Gap 5.3, BUN 19, Creatinine 1.30 H, Estimated Creat Clear 46, Estimated GFR 53 L, Est GFR ( Amer) 64 D, Glucose 117 H, Calcium 8.8 11/24/22 06:10: WBC 6.6, RBC 4.16 L, Hgb 13.0 L D, Hct 40.2 L, MCV 96.4 H, MCH 31.1, MCHC 32.3, RDW 13.9, Plt Count 248, MPV 8.5, Neut % (Auto) 75.5, Lymph % (Auto) 13.8, [place] % (Auto) 7.8, Eos % (Auto) 2.3, Baso % (Auto) 0.6, Neut # (Auto) 5.0, Lymp
--- NOTE | 2022-11-24 15:26 | PC.NURSE ---
Courtesy tech ryan: pt is lying in bed with no requests at this time. Call light is within reach.
--- NOTE | 2022-11-24 16:10 | HMH.PHAINT1 ---
Pharmacy Intervention Comments: Discussed discharge medications with patient. Patient verbalized understanding and had no questions at this time.
== END 2022-11-24 17:02 | disposition home or self-care (01) ==
LOC: 2ND 13:00
PROVIDERS: Internal Medicine; Admitting Provider Internal Medicine Adolescent Medicine; PCP Family Medicine; Visit Provider Internal Medicine Adolescent Medicine
DX: I15.0 Renovascular hypertension (principal); I70.1 Atherosclerosis of renal artery; I71.40 Abdominal aortic aneurysm, without rupture, unspecified; I25.118 Atherosclerotic heart disease of native coronary artery with other forms of angina pectoris; N17.9 Acute kidney failure, unspecified; Z79.899 Other long term (current) drug therapy; Z79.02 Long term (current) use of antithrombotics/antiplatelets; N18.9 Chronic kidney disease, unspecified; I77.1 Stricture of artery
CPT/HCPCS: G0378; 36252; 36415; 37236; 80048; 80061; 84443; 85025; 85347; 92928; 93454; 99152; 99153; C1725; C1760; C1769; C1876; C1887; C1894; C9600; C9803; J1644; Q9967; U0003; U0005

== ENCOUNTER 2025-05-15 12:07 | Outpatient (CLI) | payer MEDICARE, SELFPAY ==
--- NOTE | 2025-05-15 | CA_ITS ---
APPROVED REPORT Exam: Pharmacologic Technologist: Prudence Negro Stress Nurse: Diana Gomes Ht: 6 ft 1 in Wt: 151 lbs BSA: 1.91 m2 HR: 55 bpm BP: 146/82 mmHg Stress Test Details Test: Lexiscan HR Resting HR: 55 bpm Max Heart Rate (APMHR): 135.157811 bpm Max HR Achieved: 66 bpm Target HR (85% APMHR): 114.652236 bpm % of APMHR: 48.89 Recovery HR: 64 bpm BP Resting BP: 146.0/82.0 mmHg Max BP: 146.0/82.0 mmHg Recovery BP: 137.0/78.0 mmHg ECG Resting ECG: Sinus rhythm with right bundle branch block, PAC, PVC, rate related LBBB, Known CAD/BHARTI, LM/CX, known AAA Stress ECG Conclusion Lungs CTA prior to starting exam Symptoms: None Arrhythmias/Ectopy: PAC/PVC ST-T Changes: Less than 0.[address] segment changes. Conclusion: Nondiagnostic ECG/ Lexiscan. Electronically signed by : Ashley Wu MD 05/17/2025 00:45:29
--- OUTSIDE RECORDS SUMMARY | 2025-05-15 12:09 | XMS_ITS | Clinical Summary ---
Author Organization [facility] Address [address] [place] [address] Care Team Providers Care Upper And Bottom Lacer Hand Name Role Phone Gunnar Leonardo MD Primary Care Provider [phone] Allergies No known active allergies Medications simvastatin (ZOCOR) 40 MG tablet TAKE ONE TABLET EVERY DAY AT BEDTIME TO lower cholesterol 5 6 Active metoprolol succinate XL (TOPROL-XL) 50 MG 24 hr tablet TAKE ONE TABLET EVERY DAY 1 7 Active LEVOTHYROXINE SODIUM PO Take 88 mcg by mouth Daily. Active Cyanocobalamin (B-12 PO) Take by mouth. 1000 daily Active FOLIC ACID PO Take 800 mcg by mouth. Active aspirin 81 MG EC tablet Take 81 mg by mouth Every Other Day. Active allopurinol (ZYLOPRIM) 150 MG half tablet Take 150 mg by mouth Daily. Active Ergocalciferol (VITAMIN D2 PO) Take by mouth Every 30 (Thirty) Days. 1.25 mg monthly Active colchicine 0.6 MG tablet Take 0.6 mg by mouth Daily. Active amLODIPine (NORVASC) 5 MG tablet Take 5 mg by mouth Daily. Active clopidogrel (PLAVIX) 75 MG tablet Take 1 tablet by mouth Daily. 30 tablet 11 9 Active hydrALAZINE (APRESOLINE) 10 MG tablet Take 10 mg by mouth 2 (Two) Times a Day. 9 Active Active Problems Problem Noted Date Diagnosed Date Bilateral carotid artery stenosis 11/15/2019 Secondary hypertension 11/14/2018 Overview (11/14/2018): Added automatically from request for surgery [id number] Renal artery stenosis 11/02/2018 Abdominal aortic aneurysm (AAA) without rupture 12/29/2017 Abdominal aortic aneurysm 11/03/2016 Overview (11/03/2016): 4.2cm Dyslipidemia 11/03/2016 Hypertension 11/03/2016 Family History Medical History Relation Name Comments Cancer Father Cancer Mother Coronary artery disease Other FH Hypertension Other FH Relation Name Status Comments Father Mother Other FH Social History Tobacco Use Types Packs/Day Years Used Date Smoking Tobacco: Never Smokeless Tobacco: Never Alcohol Use Standard Drinks/Week Comments No 0 (1 standard drink = 0.6 oz pur e alcohol) Abuse Screen Answer Date Recorded Unsafe at Home or Work/School Not on file Feels Threatened by Someone? Not on file 07/2023 Does Anyone Keep You from Co ntacting Others or Doint Things Outside the Home? Not on file 06/29/2023 Physical Sign of Abuse Present Not on file 1 Housing Stability Answer Date Recorded Current Living Arrangements Not on file 06/19 Potentially Unsafe Housing Conditions Not on curtis e 06/29/2023 Family and Community Support Answer Manuel e Recorded Help with Day-to-Day Activities Not on file 06/29/2023 Lonely or Isolated Not on file 06/29/2023 Employment Answer Date Recorded Do you want help finding or keeping work or a jenny b? Not on file 06/29/2023 Disabilities Answer Date Recorded Concentrating, Remembering, or Making Decisions Difficulty Not on file 06/29/2023 Doing Errands Independently Difficulty Not on fi le 06/29/2023 Education Answer Date Recorded Help with school or training? Not on file Preferred Language Not on file 06/29/2023 Sex and Gender Information Value Date Recorded Sex Assigned at Not on file Legal Sex Male 11:47 AM EDT Gender Identity Not on file Sexual Orientation Not on file Occupation Industry Job Start Date Job End Date [employer] Not on file Not on file Not on file Last Filed Vital Signs Vital Sign Reading Time Taken Comments Blood Pressure 152/85 11/14/2019 12:24 PM EST Pulse 55 11/14/2019 12:24 PM EST Temperature 36.4 C (97.5 F) 11/15/2018 12:48 PM EST Respiratory Rate 18 11/15/2018 5:15 PM EST Oxygen Saturation 98% 11/14/2019 12:24 PM EST Inhaled Oxygen Concentration - - Weight 78.6 kg (173 lb 3.2 oz) 11/14/2019 12:24 PM EST Height 185.4 cm (6' 1 ) 11/14/2019 12:24 PM EST Body Mass Index 22.85 11/14/2019 12:24 PM EST Plan of Treatment Health Maintenance Due Date Last Done Comments TDAP/TD VACCINES (1 - Tdap) 02/23/1959 Pneumococcal Vaccine 50+ (1 of 1 - PCV) 02/23/1990 ZOSTER VACCINE (1 of 2) 02/23/1990 RSV Vaccine - Adults (1 - 1-dose 75+ series) 5 ANNUAL PHYSICAL 11/10/2017 COVID-19 Vaccine (1 - 2023- season) 2024 INFLUENZA VACCINE 06/19/2025 Medical Devices Implanted Type Area Cognos Lead Device Identifier Shelf Expiration Date Model / Serial / Lot Stent Vsn Rx 4.0x15mm - [id number] Implanted:Qty: 1 on 11/15/2018 by Gabe Herr MD at [facility] Stent [employer] [id number] / / Insurance MEDICARE A & B Member Subscriber Plan / Payer (Ef fective 2005-Present) Name:Mele Veronica Jr. Member ID:[id number] Relation to Subscriber:Self Name:Mele Veronica Jr. Subscriber ID:[id number] Payer ID:[id number] Group ID:Not on file Type:Not on file Address: [facility] [id number] [address] Care Teams Upper And Bottom Lacer Hand Relationship Specialty Start Date End Date Gunnar Leonardo MD [address] [place] [address] PCP - General Family Medicine 12/28/17
--- NOTE | 2025-05-15 12:30 | NM_ITS ---
APPROVED REPORT Exam: Nuclear Stress Test Indication: soa Patient Location: Outpatient Stress Tech: Prudence Negro ID Tech:Julieth BonillaringtonPAUL RT(R)(N) Ht: 6 ft 0 in Wt: 190 lbs HR: 60 bpm BP: 146/82 mmHg BSA: 2.08 m2 TID: 0.91 History: soa Procedure: Patient received 0.4 mg of intravenous Lexiscan, resting heart rate 60 bpm, resting blood pressure 146/82 mmHg, with Lexiscan maximum heart rate achieved was 66 bpm which is 85 % of the maximum predicted heart rate and blood pressure was 126/66 mmHg. With Lexiscan, patient denied any complaint of chest pain. Cardiac Stress and Resting SPECT Images: Cardiac Stress and Resting SPECT images were obtained using technetium 99m Myoview 32.7 mCi stress and 10.94 mCi at rest. Resting and stress imaging in supine and prone positions demonstrate a medium sized, moderate, partially reversible perfusion defect in the basal inferior LV wall. Gated imaging demonstrates normal global LV systolic function. LVEF is calculated at 60%. Conclusion: Medium sized, moderate, partially reversible perfusion defect in the basal inferior LV wall. Findings are suggestive of partial reversible ischemia. Gated imaging demonstrates normal global LV systolic function. LVEF is calculated at 60%. Electronically signed by : Ashley Wu MD 05/17/2025 00:31:15
[2025-05-15] MEDS: SODIUM CHLORIDE 0.9% 10ML SYR (RAD ONLY) 10 ML IV ×2 (13:48)
[2025-05-15] MEDS: ISOTOPE MYOVIEW (PER STUDY) 1 DOSE IV (13:48)
--- NOTE | 2025-05-15 14:30 | CA_ITS ---
APPROVED REPORT EXAM: Comprehensive 2D, Doppler, and color-flow Echocardiogram [employer]er Machine Tender: ROYCE Brown, RVS Ht: 6 ft 1 in Wt: 151lbs BSA: 1.91 BP: 121/79 mmHg Indications: CAD-stents, Dyspnea, HTN Echo Enhancing Agent Comments: Extremely low windows parasternally 2D Dimensions Left Atrium 4.10 cm M: 3.0 - 4.0 LA Volume 84.80 mL LA Volume Index 44.805031 mL/m2 (M/F) 16-34 M-Mode Dimensions RVDd 3.38 cm (0.9-2.6) LA Diam 4.28 cm (1.9-4.0) LVDd 4.84 cm (3.5-5.7) LVDs 3.62 cm (3.5-5.7) IVSd 1.27 cm (0.6-1.1) PWd 1.36 cm (0.6-1.1) EF (Teich) 49.60% EPSs 1.08 cm FS 25.20% EDV (Teich) 109.60 mL TAPSE 2.14 (<1.7) ESV (Teich) 55.20 mL LV Diastology E Decel Time 240 (160-240 msec) E/A Ratio 0.80 MED A' 8.60 cm/s LAT A' 10.00 cm/s Aortic Valve MALACHI Index 1.14 cm2/m2 AoV Peak Maximo. 114.0 (50-130 cm/s) AI PHT 705.00 ms AO Peak GR. 5.20 mmHg AO Mean GR. 2.60 (<5 mmHg) AO VTI 28.5 (18-25 cm) MALACHI (VTI) 2.23 (2.5-4.5 cm2) Mitral Valve MV A Velocity 66.0 (40-130 cm/s) E/A Ratio 0.80 Pulmonary Valve MT End VMAX 94.0 cm/s Tricuspid Valve TR P. Velocity 314.00 cm/s RAP Estimate 10.00 mmHg RVSP 49.50 mmHg Left Ventricle The left ventricle is normal size. Left ventricular systolic function is normal. The left ventricular ejection fraction is within the normal range. There is increased left ventricular wall thickness. There is normal LV segmental wall motion. Transmitral Doppler flow pattern suggests impaired LV relaxation. LVEF is 55% Right Ventricle The right ventricle is normal size. The right ventricular systolic function is normal. Atria The left atrium is moderately dilated. The right atrium is moderately dilated. There is no color Doppler evidence of interatrial shunt. Aortic Valve The aortic valve is mildly thickened. There is no hemodynamically significant aortic valvular stenosis. Mild aortic regurgitation is present. Mitral Valve The mitral valve is normal in structure. No evidence of mitral valve stenosis. Mild mitral regurgitation is present. Tricuspid Valve The tricuspid valve leaflets are thin and pliable. Mild to moderate tricuspid regurgitation. RVSP is 40-45 mmHg. Pulmonic Valve The pulmonary valve is grossly normal in structure. Mild pulmonic valve regurgitation is present. Great Vessels The aortic root is normal in size. IVC is normal in size and collapses >50% with inspiration. Pericardium There is no pericardial effusion. Other Information Study Quality: Fair Conclusion Normal biventricular systolic function. Biatrial dilation. Mild to moderate TR. Mild AI, mild MR, mild MT. RVSP 40-45 mmHg. Electronically signed by : Ashley Wu MD 05/17/2025 21:39:14
== END 2025-05-15 23:59 | disposition home or self-care (01) ==
LOC: RAD 12:08
PROVIDERS: PCP Family Medicine; Visit Provider Nurse Practitioner
DX: I08.8 Other rheumatic multiple valve diseases (principal); I11.9 Hypertensive heart disease without heart failure; I25.10 Atherosclerotic heart disease of native coronary artery without angina pectoris; I71.40 Abdominal aortic aneurysm, without rupture, unspecified; R94.31 Abnormal electrocardiogram [ECG] [EKG]; R94.39 Abnormal result of other cardiovascular function study; Z95.5 Presence of coronary angioplasty implant and graft
CPT/HCPCS: 78452; 93017; 93018; 93306; A9502; J2785

== ENCOUNTER 2025-06-17 07:45 | Day surgery (SDC) | payer MEDICARE, OTHER, SELFPAY ==
[2025-06-17] VITALS (13 sets, daily range): BP systolic 116–154; BP diastolic 49–78; PULSE 42–79; RESP 17–20; O2SAT 95–98
--- NOTE | 2025-06-17 07:04 | IR_ITS ---
APPROVED REPORT Patient Location: Outpatient Clinical Resource Coordinator: PAUL Salazar RT (R) PROCEDURES Left heart catheterization Left ventriculogram Selective coronary angiogram INDICATION Known coronary artery disease, Abnormal Myoview, Angina pectoris Informed consent was obtained prior to the procedure. COMPLICATIONS NONE Estimated Blood Loss: LESS THAN 10 ML TECHNIQUE One percent lidocaine used to anesthetize the right anterior aspect of the wrist. The right radial artery was accessed via the Seldinger technique. A 6 Latvian sheath was placed in the right radial artery. 2.5 mg of Verapamil, 800 mcg of nitroglycerin, 1mg Lidocaine and 5000 U Heparin were given through the arterial sheath. The JL3 catheter was also used to perform left heart catheterization, left ventriculogram and selective coronary angiogram. At the end of the procedure the sheath was removed good hemostasis was achieved using Traclet band, patient was transferred to the postop holding area in stable condition. ANGIOGRAPHIC RESULTS The left main artery Has a stent in the ostial segment which extends into the LAD. There is mild concentric in-stent restenosis of approximately 10 to 20%. The left anterior descending artery Has a stent originating off the left main artery which has an ostial 30 to 40% stenosis with the proximal and mid LAD stent being widely patent. The mid LAD stent has 30% concentric in-stent restenosis. Further down the junction between the mid and distal LAD has a 40% stenosis. The LAD is large and wraps the apex The circumflex artery Is dominant and has a stent originating from the left main artery in which the ostial segment has 30% concentric in-stent restenosis The right coronary artery Nondominant has proximal 40% mid vessel 30 to 40% stenosis The JOHNSON ventriculogram reveals Not performed The left ventricular end-diastolic pressure 15 mmHg IMPRESSION Coronary disease as described above PLAN 1. Continue medical management Electronically signed by : Jerel Diaz MD 06/17/2025 10:23:16
[2025-06-17 08:17] LABS: Hematocrit 37.4 % (42.0-52.0); Hemoglobin 11.8 g/dL (14.1-18.0); Immature Granulocytes % 0.5 %; Mean Corpuscular HGB Conc 31.6 g/dL (31.8-35.4); Mean Corpuscular Hemoglobin 30.2 pg (27.0-31.2); Mean Corpuscular Volume 95.7 fl (80-94); Nucleated Red Blood Cells % 0 %; Platelet Count 268 K/mm3 (142-424); Red Blood Count 3.91 M/mm3 (4.60-6.20); Red Cell Distribution Width-SD 48.5 fL; White Blood Count 7.4 K/mm3 (4.8-10.8)
[2025-06-17 08:21] LABS: Chloride 104 mmol/L (98-107); Potassium 4.4 mmoL/L (3.5-5.1); Sodium 139 mmol/L (136-145)
[2025-06-17 08:24] LABS: Anion Gap 11.4 mEq/L (5-15); Blood Urea Nitrogen 28 mg/dl (9-20); Calcium 9.5 mg/dl (8.4-10.2); Carbon Dioxide 28 mmol/L (22.0-30.0); Creatinine Clearance Estimated 33 mL/min (50-200); Creatinine,Serum 1.60 mg/dl (0.66-1.25); Estimated Glomerular Filt Rate 41 ml/min (>60); GFR (African American) 50 ML/MIN (>60); Glucose 120 mg/dl (74-100)
[2025-06-17] MEDS: LIDOCAINE 1% 10ML MDV 10 ML IJ (09:05)
[2025-06-17] MEDS: NITROGLYCERIN 800MCG/8ML SYR (CATH LAB) 800 MCG IA (09:05)
[2025-06-17] MEDS: HEPARIN 1,000 UNITS/ML 10ML VIAL (CATH LAB) 5000 UNIT IV (09:05)
[2025-06-17] MEDS: 0.9 % SODIUM CHLORIDE 500 ML 25 ML IV (09:05)
[2025-06-17] MEDS: HEPARIN 1,000 UNITS/500ML NS (CATH LAB) 3000 UNIT IV (09:05)
[2025-06-17] MEDS: VERAPAMIL 2.5MG/ML 2ML VIAL 2.5 MG IV (09:06)
[2025-06-17] MEDS: FENTANYL 100MCG/2ML VIAL 50 MCG IV (09:06)
[2025-06-17] MEDS: MIDAZOLAM HCL 1MG/ML 5ML VIAL 1 MG IV (09:06)
[2025-06-17] MEDS: IOPAMIDOL-370 (76%);100ML BOTTLE 50 ML IV (09:51)
== END 2025-06-17 12:46 | disposition home or self-care (01) ==
PROVIDERS: PCP Family Medicine; Visit Provider Internal Medicine
PROC: 4A023N7 Measurement of Cardiac Sampling and Pressure, Left Heart, Percutaneous Approach (ICD-10-PCS; CPT 93452; principal; 2025-06-17 07:30)
DX: I25.119 Atherosclerotic heart disease of native coronary artery with unspecified angina pectoris (principal); T82.855A Stenosis of coronary artery stent, initial encounter; R06.09 Other forms of dyspnea; R53.83 Other fatigue; R94.31 Abnormal electrocardiogram [ECG] [EKG]; I71.40 Abdominal aortic aneurysm, without rupture, unspecified; I70.1 Atherosclerosis of renal artery; I15.0 Renovascular hypertension; E78.2 Mixed hyperlipidemia; Z79.02 Long term (current) use of antithrombotics/antiplatelets; Z79.82 Long term (current) use of aspirin; Z79.890 Hormone replacement therapy; Z79.899 Other long term (current) drug therapy; Z95.828 Presence of other vascular implants and grafts; Z82.49 Family history of ischemic heart disease and other diseases of the circulatory system
CPT/HCPCS: 80048; 85025; 93458; 99152; C1725; C1769; J1200; J1644; J3010; J7040; Q9967